=== PATIENT | female | born 1990 | race Caucasian/White ===

== ENCOUNTER 2018-02-17 04:05 | Emergency (ER) | payer SELFPAY ==
[~2018-02-17] VITALS: Ht 162.6 cm; Wt 68.0 kg
[2018-02-17 04:45] VITALS: BP 125/70
== END 2018-02-17 05:35 | disposition home or self-care (01) ==
LOC: ER 04:05
DX: R51 Headache (principal); H53.8 Other visual disturbances
CPT/HCPCS: 99281; Z7610